=== PATIENT | female | born 1950 | race Two or more races ===

== ENCOUNTER 2024-02-11 15:40 | Emergency (ER) | payer MEDICAID ==
[~2024-02-11] VITALS: Ht 152.4 cm; Wt 83.9 kg
[2024-02-11 16:58] VITALS: BP 148/93; TEMP 97.9
[2024-02-11] MEDS ORDERED: TOBR5DRO2 LEFTEYE (17:56)
[2024-02-11] MEDS ORDERED: SULF1TAB48 PO (17:56)
[2024-02-11] MEDS ORDERED: CEPH500T PO (17:56)
[2024-02-11 18:10] VITALS: O2SAT 99
== END 2024-02-11 18:10 | disposition home or self-care (01) ==
LOC: ER 15:48
DX: L03.115 Cellulitis of right lower limb (principal); H10.9 Unspecified conjunctivitis

== ENCOUNTER 2024-03-19 16:21 | Emergency (ER) | payer MEDICARE, OTHER ==
[~2024-03-19] VITALS: Ht 152.4 cm; Wt 86.2 kg
[~2024-03-19 16:21] MED LIST: CEPH500T PO; SULF1TAB48 PO; TOBR5DRO2 LEFTEYE
[2024-03-19 16:52] VITALS: BP 144/78; TEMP 97.9; O2SAT 98
[2024-03-19] MEDS ORDERED: IBUP-1490 PO (17:46)
== END 2024-03-19 17:58 | disposition home or self-care (01) ==
LOC: ER 16:37
DX: J06.9 Acute upper respiratory infection, unspecified (principal)

== ENCOUNTER 2024-06-10 10:32 | Emergency (ER) | payer MEDICARE, OTHER ==
[~2024-06-10] VITALS: Ht 152.4 cm; Wt 90.7 kg
[~2024-06-10 10:32] MED LIST changes: +IBUP-1490 PO
[2024-06-10 10:46] VITALS: BP 133/68; TEMP 97.7; O2SAT 98
== END 2024-06-10 12:08 | disposition home or self-care (01) ==
LOC: ER 10:45
DX: J30.9 Allergic rhinitis, unspecified (principal); H10.13 Acute atopic conjunctivitis, bilateral; F17.200 Nicotine dependence, unspecified, uncomplicated; Z79.899 Other long term (current) drug therapy

== ENCOUNTER 2024-08-10 15:09 | Emergency (ER) | payer MEDICARE, OTHER ==
[~2024-08-10] VITALS: Ht 152.4 cm; Wt 81.6 kg
[2024-08-10 15:40] VITALS: BP 123/65; TEMP 98.2; O2SAT 95
== END 2024-08-10 16:16 | disposition home or self-care (01) ==
LOC: ER 15:23
DX: Z11.1 Encounter for screening for respiratory tuberculosis (principal); F17.200 Nicotine dependence, unspecified, uncomplicated; Z79.899 Other long term (current) drug therapy